=== PATIENT | female | born 1995 | race Hispanic/Latino ===

== ENCOUNTER 2021-11-07 17:58 | Emergency (ER) | payer SELFPAY ==
[2021-11-07] MEDS ORDERED: Ibuprofen 200 MG TAB ONE ×2 (18:24→18:28)
[2021-11-08 18:17] LABS: SARS-CoV-2 PCR by NAA DETECTED (NotDetected)
== END 2021-11-07 19:58 | disposition home or self-care (01) ==
LOC: CSHERS 17:58
DX: U07.1 COVID-19 (principal); I10 Essential (primary) hypertension; E11.9 Type 2 diabetes mellitus without complications; J45.909 Unspecified asthma, uncomplicated
CPT/HCPCS: 87804; 99283; U0003; U0005

== ENCOUNTER 2022-10-20 20:58 | Emergency (ER) | payer SELFPAY ==
[2022-10-20 21:39] LABS: Bilirubin Neg (Negative); Blood, Urine Negative (Negative); Clarity Clear (Clear); Glucose, Urine (Dipstick) >=1000 mg/dL (Negative); Ketone, Urine 50 mg/dL (Negative); Leukocyte 100 (Negative); Nitrite Negative (Negative); Protein, Urine (Dipstick) Negative (Neg-Trace); Specific Gravity, Urine 1.015 (1.005-1.030)
[2022-10-20 21:40] LABS: Pregnancy Test - Urine (BHCG) POSITIVE (Negative); Pregu Control Background? CLEAR/WHITE (CLR/WHITE); Pregu Control Bar Appear? YES (CONTROL BAR); Specific Gravity 1.015 (1.002-1.036)
[2022-10-20 21:53] LABS: Bacteria/HPF 1+ HPF (None Seen); RBC/HPF 0-3 HPF (0-3); Squamous Epithelial 0-3 HPF (0-3)
[2022-10-20 22:19] LABS: #Basophils 0.1 10x3/uL (0.0-0.2); #Eosinphils 0.2 10x3/uL (0.0-0.5); #Monocytes 0.6 10x3/uL (0.0-1.1); #Neutrophils 5.7 10x3/uL (1.5-8.4); %Basophils 0.6 % (0.0-2.0); %Eosinophils 1.7 % (0.0-6.0); %Lymphocytes 35.5 % (18.0-47.0); %Monocytes 5.8 % (0.0-10.0); %Neutrophils 55.9 % (40.0-75.0); Hemoglobin 14.2 g/dL (12.0-15.5); Mean Corpuscular HGB CONC 34.6 g/dL (32.0-36.0); Mean Corpuscular Hemoglobin 29.1 pg (27.0-33.0); Mean Platelet Volume 12.7 fl (7.4-10.4); Platelet Count 169 10x3/uL (150-450); RBC Distribution Width 13.2 % (11.5-14.5); Red Blood Cell (RBC) Count 4.88 10x6/uL (3.90-5.03); White Blood Cell (WBC) Count 10.2 10x3/uL (3.5-10.5)
[2022-10-20 22:40] LABS: ALT (SGPT) 46 U/L (8-55); AST (SGOT) 31 U/L (5-34); Alkaline Phosphatase 95 U/L (40-110); Anion Gap 13 mmol/L (10-20); BUN (Urea Nitrogen) 10 mg/dL (7.0-18.7); Bilirubin, Total 0.3 mg/dL (0.2-1.2); Calc. Creatinine Clearance 0 mL/min (70-130); Calcium 9.1 mg/dL (7.8-10.44); Carbon Dioxide 18 mmol/L (22-29); Chloride 108 mmol/L (98-107); Estimated GFR 111; Globulin 3.3 g/dL (2.4-3.5); Glucose 283 mg/dL (70-105); Potassium 3.6 mmol/L (3.5-5.1); Protein, Total 7.3 g/dL (6.0-8.3); Sodium 135 mmol/L (136-145)
== END 2022-10-20 23:40 | disposition home or self-care (01) ==
LOC: CSHERS 20:58
DX: O99.891 Other specified diseases and conditions complicating pregnancy (principal); R10.9 Unspecified abdominal pain; R53.83 Other fatigue; E11.9 Type 2 diabetes mellitus without complications; Z3A.01 Less than 8 weeks gestation of pregnancy
CPT/HCPCS: 76856; 80053; 81003; 81015; 81025; 84702; 85025; 86900; 86901

== ENCOUNTER 2022-11-02 08:21 | Emergency (ER) | payer SELFPAY ==
[2022-11-02 08:50] LABS: BHCG - Serum POSITIVE (NEGATIVE); Pregs Control Background? CLEAR/WHITE (CLR/WHITE); Pregs Control Bar Appear? YES (CONTROL BAR)
[2022-11-02 08:51] LABS: Bilirubin Neg (Negative); Blood, Urine 150 (Negative); Clarity Clear (Clear); Glucose, Urine (Dipstick) >=1000 mg/dL (Negative); Ketone, Urine Negative (Negative); Leukocyte 100 (Negative); Nitrite Negative (Negative); Protein, Urine (Dipstick) Negative (Neg-Trace); pH, Urine 6.5 (5.0-9.0)
[2022-11-02 08:51] LABS: #Basophils 0.1 10x3/uL (0.0-0.2); #Eosinphils 0.2 10x3/uL (0.0-0.5); #Monocytes 0.9 10x3/uL (0.0-1.1); #Neutrophils 8.1 10x3/uL (1.5-8.4); %Basophils 0.5 % (0.0-2.0); %Eosinophils 1.1 % (0.0-6.0); %Lymphocytes 33.6 % (18.0-47.0); %Monocytes 6.1 % (0.0-10.0); %Neutrophils 58.4 % (40.0-75.0); Hemoglobin 13.9 g/dL (12.0-15.5); Mean Corpuscular HGB CONC 34.8 g/dL (32.0-36.0); Mean Corpuscular Hemoglobin 29.4 pg (27.0-33.0); Mean Corpuscular Volume 84.5 fl (81.6-98.3); Mean Platelet Volume 12.6 fl (7.4-10.4); Platelet Count 186 10x3/uL (150-450); Red Blood Cell (RBC) Count 4.72 10x6/uL (3.90-5.03)
[2022-11-02 09:05] LABS: ALT (SGPT) 31 U/L (8-55); AST (SGOT) 19 U/L (5-34); Albumin 3.8 g/dL (3.5-5.0); Alkaline Phosphatase 109 U/L (40-110); Anion Gap 14 mmol/L (10-20); BUN (Urea Nitrogen) 10 mg/dL (7.0-18.7); Bilirubin, Total 0.3 mg/dL (0.2-1.2); Calc. Creatinine Clearance 0 mL/min (70-130); Calcium 9.2 mg/dL (7.8-10.44); Carbon Dioxide 20 mmol/L (22-29); Chloride 104 mmol/L (98-107); Estimated GFR 97; Globulin 3.1 g/dL (2.4-3.5); Potassium 3.7 mmol/L (3.5-5.1); Protein, Total 6.9 g/dL (6.0-8.3); Sodium 134 mmol/L (136-145)
[2022-11-02 09:14] LABS: Bacteria/HPF 1+ HPF (None Seen)
[2022-11-02 09:33] LABS: Glucose 432 mg/dL (70-105)
== END 2022-11-02 10:40 | disposition home or self-care (01) ==
LOC: CSHERS 08:21
DX: O20.0 Threatened abortion (principal); O24.111 Pre-existing type 2 diabetes mellitus, in pregnancy, first trimester; E11.65 Type 2 diabetes mellitus with hyperglycemia; O23.41 Unspecified infection of urinary tract in pregnancy, first trimester; N39.0 Urinary tract infection, site not specified; Z3A.01 Less than 8 weeks gestation of pregnancy
CPT/HCPCS: 76856; 80053; 81003; 81015; 84702; 84703; 85025

== ENCOUNTER 2023-05-20 10:26 | Day surgery (SDC) | payer OTHER ==
[2023-05-20 11:00] VITALS: BMI 39.4
[2023-05-20] MEDS ORDERED: hydrALAZINE 20 MG/ML VIAL SLOW IVP PRN (12:06)
[2023-05-20] MEDS ORDERED: HumaLOG 300 UNITS/3 ML VIAL SC SCH ×3 (13:30→21:00)
[2023-05-20] MEDS ORDERED: Insulin NPH Human Isophane 100 UNITS/ML (10 ML VIAL) SC SCH ×2 (13:30→21:00)
== END 2023-05-20 13:50 | disposition home or self-care (01) ==
LOC: CSHLD/OP 10:26
PROVIDERS: ATTEND Obstetrics & Gynecology
DX: Z36.89 Encounter for other specified antenatal screening (principal); O24.419 Gestational diabetes mellitus in pregnancy, unspecified control; O99.353 Diseases of the nervous system complicating pregnancy, third trimester; G43.909 Migraine, unspecified, not intractable, without status migrainosus; O99.343 Other mental disorders complicating pregnancy, third trimester; F41.9 Anxiety disorder, unspecified; F32.A Depression, unspecified; Z79.4 Long term (current) use of insulin; Z91.018 Allergy to other foods; Z91.048 Other nonmedicinal substance allergy status; Z79.899 Other long term (current) drug therapy; Z3A.34 34 weeks gestation of pregnancy
CPT/HCPCS: 36416; J1815

== ENCOUNTER 2023-05-31 22:45 | Observation (INO) | payer OTHER ==
[2023-05-31 23:08] VITALS: BMI 39.6
[2023-05-31] MEDS ORDERED: hydrALAZINE 20 MG/ML VIAL SLOW IVP PRN (23:18)
[2023-06-01 00:47] LABS: #Basophils 0.1 10x3/uL (0.0-0.2); #Eosinphils 0.1 10x3/uL (0.0-0.5); #Monocytes 0.7 10x3/uL (0.0-1.1); #Neutrophils 7.4 10x3/uL (1.5-8.4); %Basophils 0.5 % (0.0-2.0); %Lymphocytes 29.1 % (18.0-47.0); %Monocytes 5.7 % (0.0-10.0); %Neutrophils 63.3 % (40.0-75.0); Hemoglobin 12.6 g/dL (12.0-15.5); Mean Corpuscular HGB CONC 33.2 g/dL (32.0-36.0); Mean Corpuscular Hemoglobin 28.3 pg (27.0-33.0); Mean Corpuscular Volume 85.4 fl (81.6-98.3); Platelet Count 172 10x3/uL (150-450); RBC Distribution Width 13.9 % (11.5-14.5); Red Blood Cell (RBC) Count 4.45 10x6/uL (3.90-5.03); White Blood Cell (WBC) Count 11.7 10x3/uL (3.5-10.5)
[2023-06-01 00:49] LABS: Bilirubin 1+ (Negative); Blood, Urine Negative (Negative); Clarity Slightly Cloudy (Clear); Glucose, Urine (Dipstick) 50 mg/dL (Negative); Ketone, Urine 5 mg/dL (Negative); Leukocyte 25 (Negative); Nitrite Negative (Negative); Protein, Urine (Dipstick) 100 mg/dl (Neg-Trace); Specific Gravity, Urine 1.015 (1.005-1.030); pH, Urine 6.5 (5.0-9.0)
[2023-06-01 00:53] LABS: ALT (SGPT) 14 U/L (8-55); AST (SGOT) 16 U/L (5-34); Albumin 3.3 g/dL (3.5-5.0); Alkaline Phosphatase 120 U/L (40-110); Anion Gap 15 mmol/L (10-20); BUN (Urea Nitrogen) 9 mg/dL (7.0-18.7); Bilirubin, Total 0.4 mg/dL (0.2-1.2); Calc. Creatinine Clearance 193 mL/min (70-130); Calcium 8.5 mg/dL (7.8-10.44); Carbon Dioxide 20 mmol/L (22-29); Chloride 107 mmol/L (98-107); Estimated GFR 120; Globulin 2.8 g/dL (2.4-3.5); Glucose 107 mg/dL (70-105); Lipase 44 U/L (8-78); Protein, Total 6.1 g/dL (6.0-8.3); Sodium 138 mmol/L (136-145)
[2023-06-01 00:54] LABS: SARS-CoV-2 NAA Rapid Test Not Detected (NotDetected)
[2023-06-01 01:07] LABS: CAUTI Indications for Culture Pregnancy; RBC/HPF None Seen HPF (0-3); Squamous Epithelial 0-3 HPF (0-3)
[2023-06-01 01:08] LABS: Bacteria/HPF 1+ HPF (None Seen)
[2023-06-01 01:09] LABS: Urine Culture Reflex Yes Yes
[2023-06-01] MEDS ORDERED: cefTRIAXone\\ROCEPHIN 1 GM in Sodium Chloride 0.9% 100 ML IVPB SCH (02:00)
[2023-06-01] MEDS ORDERED: Ondansetron PF 4 MG/2 ML Vial IVP PRN (02:18)
[2023-06-01] MEDS ORDERED: Promethazine HCl 25 MG/ML VIAL IM PRN (02:18)
[2023-06-01] MEDS ORDERED: Sodium Chloride 0.9% 1,000 ML IV SCH (02:30)
[2023-06-01] MEDS ORDERED: metroNIDAZOLE 500 MG TAB PO SCH (03:00)
== END 2023-06-01 14:10 | disposition home health service (06) ==
LOC: CSHLD/OP 22:45 → CSHLD 06-01 01:46
PROVIDERS: ADMIT Obstetrics & Gynecology; ATTEND Obstetrics & Gynecology
DX: O99.891 Other specified diseases and conditions complicating pregnancy (principal); R10.32 Left lower quadrant pain; O99.613 Diseases of the digestive system complicating pregnancy, third trimester; K21.9 Gastro-esophageal reflux disease without esophagitis; O24.313 Unspecified pre-existing diabetes mellitus in pregnancy, third trimester; O23.43 Unspecified infection of urinary tract in pregnancy, third trimester; N39.0 Urinary tract infection, site not specified; O23.593 Infection of other part of genital tract in pregnancy, third trimester; B96.89 Other specified bacterial agents as the cause of diseases classified elsewhere; Z79.84 Long term (current) use of oral hypoglycemic drugs; Z79.4 Long term (current) use of insulin; Z88.4 Allergy status to anesthetic agent; Z79.899 Other long term (current) drug therapy; Z91.018 Allergy to other foods; Z3A.35 35 weeks gestation of pregnancy; Z20.822 Contact with and (suspected) exposure to COVID-19
CPT/HCPCS: 36415; 76819; 80053; 81001; 82010; 83690; 85025; 87086; 87480; 87510; 87660; 96374; G0378; J0696; J3490; J7050

== ENCOUNTER 2023-06-15 07:58 | Day surgery (SDC) | payer OTHER ==
[2023-06-15] MEDS ORDERED: Ondansetron PF 4 MG/2 ML Vial ONE (09:16)
[2023-06-15] MEDS ORDERED: Morphine 2 MG/ML VIAL SLOW IVP SCH (09:45)
[2023-06-15] MEDS ORDERED: Morphine 4 MG/ML VIAL SLOW IVP SCH (10:00)
[2023-06-15 11:08] VITALS: BMI 40.2
== END 2023-06-15 19:33 | disposition home or self-care (01) ==
LOC: CSHLD/OP 07:58
PROVIDERS: ATTEND Obstetrics & Gynecology
DX: O99.891 Other specified diseases and conditions complicating pregnancy (principal); M54.9 Dorsalgia, unspecified; O21.2 Late vomiting of pregnancy; O32.1XX0 Maternal care for breech presentation, not applicable or unspecified; O24.913 Unspecified diabetes mellitus in pregnancy, third trimester; Z3A.38 38 weeks gestation of pregnancy; Z79.4 Long term (current) use of insulin; Z91.018 Allergy to other foods; Z88.8 Allergy status to other drugs, medicaments and biological substances
CPT/HCPCS: J2405

== ENCOUNTER 2023-06-18 09:58 | Inpatient (IN) | payer OTHER ==
[2023-06-17 11:43] LABS: Hematocrit 39.2 % (34.9-44.5); Hemoglobin 13.2 g/dL (12.0-15.5); Platelet Count 179 10x3/uL (150-450)
[2023-06-17 12:19] LABS: HBSAg Index 0.19 S/CO (0-0.99); Hep B Surf Ag Non-Reactive S/CO (NonReactive)
[2023-06-17 12:20] LABS: Syphilis Antibody Nonreactive (Nonreactive); Syphilis Antibody Index 0.05 S/CO (<1.00 Non-Reactive)
[2023-06-18] MEDS ORDERED: CEFAZOLIN 2 GM VIAL ONE (10:16)
[2023-06-18] MEDS ORDERED: Sodium Chloride 0.9% 100 ML ONE (10:16)
[2023-06-18] MEDS ORDERED: Famotidine/PF 20 mg/2ml Vial ONE (10:16)
[2023-06-18] MEDS ORDERED: Ondansetron PF 4 MG/2 ML Vial IVP PRN ×3 (10:57→15:59)
[2023-06-18] MEDS ORDERED: Carboprost 250 MCG/ML AMP IM PRN (10:57)
[2023-06-18] MEDS ORDERED: Famotidine/PF 20 mg/2ml Vial SLOW IVP PRN (10:57)
[2023-06-18] MEDS ORDERED: Diphenoxylate HCl/Atropine Tablet PO PRN ×2 (10:57)
[2023-06-18] MEDS ORDERED: Promethazine HCl 25 MG/ML VIAL IM PRN ×3 (10:57→15:59)
[2023-06-18] MEDS ORDERED: Misoprostol 200 MCG TAB PR PRN ×2 (10:57→15:59)
[2023-06-18] MEDS ORDERED: Methylergonovine 0.2 MG/ML VIAL IM PRN ×2 (10:57→15:59)
[2023-06-18] MEDS ORDERED: Tranexamic Acid 1,000 MG/10 ML VIAL IVP PRN (10:57)
[2023-06-18] MEDS ORDERED: hydrALAZINE 20 MG/ML VIAL SLOW IVP PRN ×2 (10:57→15:59)
[2023-06-18] MEDS ORDERED: Bicitra 30 ML UDCUP PO PRN (10:57)
[2023-06-18] MEDS ORDERED: Lactated Ringer's 1,000 ML IV SCH (11:00)
[2023-06-18] MEDS ORDERED: CEFAZOLIN 2 GM in Sodium Chloride 0.9% 100 ML IVPB SCH (11:00)
[2023-06-18] MEDS ORDERED: NS w/ Oxytocin 30 units 500 ML IV SCH ×2 (11:00→15:59)
[2023-06-18 12:01] VITALS: BMI 39.4
[2023-06-18] MEDS ORDERED: fentaNYL 50 mcg/mL 1 mL Vial ONE (12:12)
[2023-06-18] MEDS ORDERED: Morphine PF 10 MG/10 ML VIAL ONE (12:12)
[2023-06-18] MEDS ORDERED: Oxytocin 10 UNITS/ML VIAL ONE ×2 (12:41→13:00)
[2023-06-18] MEDS ORDERED: Ondansetron PF 4 MG/2 ML Vial ONE (12:41)
[2023-06-18] MEDS ORDERED: PHENYLEPHRINE-NS 100 MCG/ML 10 ML SYRINGE ONE (12:41)
[2023-06-18] MEDS ORDERED: Dexamethasone 4 mg/ml Vial ONE (12:41)
[2023-06-18] MEDS ORDERED: Promethazine HCl 25 MG/ML VIAL ONE (12:44)
[2023-06-18] MEDS ORDERED: Phenylephrine 40 MG/NS 250 ML 250 ML ONE (13:13)
[2023-06-18] MEDS ORDERED: Ondansetron HCl/PF 4 MG/2 ML Vial IVP PRN (13:20)
[2023-06-18] MEDS ORDERED: Naloxone HCl 0.4 mg/ml Vial IV PRN (13:20)
[2023-06-18] MEDS ORDERED: L&D-HYDROmorphone 0.5 MG/0.5 ML SYRINGE SLOW IVP PRN (13:20)
[2023-06-18] MEDS ORDERED: Promethazine HCl 25 MG SUPP PR PRN (13:20)
[2023-06-18] MEDS ORDERED: Ketorolac Tromethamine 30 MG/ML VIAL IVP PRN (13:20)
[2023-06-18] MEDS ORDERED: Meperidine HCl/PF 25 MG/ML VIAL SLOW IVP PRN (13:20)
[2023-06-18] MEDS ORDERED: Moisturizing Cream (Eucerin) 113 GM JAR TOP PRN (13:20)
[2023-06-18] MEDS ORDERED: Fentanyl 50 MCG/1 ML VIAL SLOW IVP PRN (13:20)
[2023-06-18] MEDS ORDERED: diphenhydrAMINE 50 MG/ML VIAL IVP PRN (13:20)
[2023-06-18] MEDS ORDERED: Naloxone HCl 0.4 mg/ml Vial IVP PRN ×2 (13:20)
[2023-06-18] MEDS ORDERED: diphenhydrAMINE 50 MG/ML VIAL ONE (13:26)
[2023-06-18] MEDS ORDERED: Naloxone HCl 0.4 mg/ml Vial ONE (13:27)
[2023-06-18] MEDS ORDERED: Ketorolac Tromethamine 30 MG/ML VIAL IVP SCH (13:30)
[2023-06-18] MEDS ORDERED: Communication Order-Pharmacy FS SCH (13:30)
[2023-06-18] MEDS ORDERED: Boostrix 0.5 ML (Tdap) VIAL (>/=7 yrs of age) IM ONE (15:59)
[2023-06-18] MEDS ORDERED: Lanolin Ointment 7 GM TUBE TOP PRN (15:59)
[2023-06-18] MEDS ORDERED: Bisacodyl 10 MG SUPP PR PRN (15:59)
[2023-06-18] MEDS ORDERED: Insulin Regular 300 UNITS/3 ML VIAL SC PRN (15:59)
[2023-06-18] MEDS ORDERED: Dextrose 50% Abboject 50 ML SYRINGE SLOW IVP PRN (15:59)
[2023-06-18] MEDS ORDERED: Acetaminophen 325 MG TAB PO PRN (15:59)
[2023-06-18] MEDS ORDERED: Dextrose 5% in Water 1,000 ML IV PRN (15:59)
[2023-06-18] MEDS ORDERED: Glucagon 1 MG/ML KIT IM PRN (15:59)
[2023-06-18] MEDS ORDERED: diphenhydrAMINE 25 MG CAP PO PRN (15:59)
[2023-06-18] MEDS ORDERED: Varicella virus, LIVE 0.5 ML VIAL SC ONE (15:59)
[2023-06-18] MEDS ORDERED: Measles/Mumps/Rubella 10 MCG/0.5 ML VIAL SC ONE (15:59)
[2023-06-18] MEDS ORDERED: Simethicone Chewable 80 MG TAB PO PRN (15:59)
[2023-06-18] MEDS: Ferrous Sulfate 325 MG TAB PO SCH (21:00)
[2023-06-18] MEDS: Docusate 100 MG CAP PO SCH (21:00)
[2023-06-19] MEDS ORDERED: Zolpidem Tartrate 5 MG TAB PO PRN (01:30)
[2023-06-19] MEDS: HYDROcodone/Acetaminophen 5/325 mg Tablet PO PRN ×3 (06:22→23:23)
[2023-06-19] MEDS: Docusate 100 MG CAP PO SCH ×2 (08:17→21:36)
[2023-06-19] MEDS: Prenatal Vitamin 1 TAB PO SCH (08:17)
[2023-06-19 08:27] LABS: Hematocrit 32.7 % (34.9-44.5); Hemoglobin 10.9 g/dL (12.0-15.5); Mean Corpuscular HGB CONC 33.3 g/dL (32.0-36.0); Mean Corpuscular Hemoglobin 28.8 pg (27.0-33.0); Mean Corpuscular Volume 86.3 fl (81.6-98.3); Mean Platelet Volume 13.3 fl (7.4-10.4); Platelet Count 155 10x3/uL (150-450); RBC Distribution Width 14.1 % (11.5-14.5); Red Blood Cell (RBC) Count 3.79 10x6/uL (3.90-5.03)
[2023-06-19] MEDS: Ferrous Sulfate 325 MG TAB PO SCH ×2 (09:00→21:39)
[2023-06-19] MEDS: Ibuprofen 800 MG TAB PO SCH ×2 (14:02→21:36)
[2023-06-20] MEDS: Ibuprofen 800 MG TAB PO SCH (05:51)
[2023-06-20 06:15] VITALS: BP 116/65; TEMP 98
[2023-06-20] MEDS: Docusate 100 MG CAP PO SCH (10:21)
[2023-06-20] MEDS: Ferrous Sulfate 325 MG TAB PO SCH (10:22)
[2023-06-20] MEDS: Prenatal Vitamin 1 TAB PO SCH (10:22)
[2023-06-20] MEDS: HYDROcodone/Acetaminophen 5/325 mg Tablet PO PRN (10:44)
== END 2023-06-20 12:30 | disposition home or self-care (01) | DRG 788 ==
LOC: CSHLD 09:58 → CSHPP 15:25
PROVIDERS: ADMIT Obstetrics & Gynecology; ATTEND Obstetrics & Gynecology
PROC: 10D00Z1 Extraction of Products of Conception, Low, Open Approach (ICD-10-PCS; principal; 2023-06-18)
DX: O32.2XX0 Maternal care for transverse and oblique lie, not applicable or unspecified (principal); O70.1 Second degree perineal laceration during delivery; O40.3XX0 Polyhydramnios, third trimester, not applicable or unspecified; O24.92 Unspecified diabetes mellitus in childbirth; Z3A.38 38 weeks gestation of pregnancy; Z37.0 Single live birth; Z88.8 Allergy status to other drugs, medicaments and biological substances; Z91.018 Allergy to other foods
CPT/HCPCS: 36415; 36416; 51702; 85014; 85018; 85027; 85049; 86780; 86850; 86900; 86901; 87340; J1100; J1200; J1815; J1885; J2274; J2310; J2405; J2550; J2590; J3010; J7120; S0028

== ENCOUNTER 2023-12-08 13:26 | Emergency (ER) | payer OTHER, SELFPAY ==
[2023-12-08] MEDS ORDERED: Ondansetron PF 4 MG/2 ML Vial ONE (15:10)
[2023-12-08] MEDS ORDERED: Ketorolac Tromethamine 30 MG (1 mL) VIAL ONE (15:10)
[2023-12-08 15:25] LABS: #Basophils 0.1 10x3/uL (0.0-0.2); #Eosinphils 0.2 10x3/uL (0.0-0.5); #Monocytes 0.5 10x3/uL (0.0-1.1); #Neutrophils 4.8 10x3/uL (1.5-8.4); %Basophils 0.6 % (0.0-2.0); %Eosinophils 2.5 % (0.0-6.0); %Monocytes 5.1 % (0.0-10.0); %Neutrophils 50.5 % (40.0-75.0); Hematocrit 35.6 % (34.9-44.5); Hemoglobin 11.9 g/dL (12.0-15.5); Mean Corpuscular HGB CONC 33.4 g/dL (32.0-36.0); Mean Corpuscular Volume 83.8 fl (81.6-98.3); Mean Platelet Volume 13.1 fl (7.4-10.4); Platelet Count 162 10x3/uL (150-450); RBC Distribution Width 13.4 % (11.5-14.5); Red Blood Cell (RBC) Count 4.25 10x6/uL (3.90-5.03); White Blood Cell (WBC) Count 9.5 10x3/uL (3.5-10.5)
[2023-12-08 15:27] LABS: ALT (SGPT) 12 U/L (8-55); AST (SGOT) 13 U/L (5-34); Albumin 3.6 g/dL (3.5-5.0); Alkaline Phosphatase 63 U/L (40-110); Anion Gap 9 mmol/L (10-20); BUN (Urea Nitrogen) 10 mg/dL (7.0-18.7); Bilirubin, Total 0.3 mg/dL (0.2-1.2); Calc. Creatinine Clearance 0 mL/min (70-130); Calcium 8.5 mg/dL (7.8-10.44); Carbon Dioxide 26 mmol/L (22-29); Chloride 110 mmol/L (98-107); Estimated GFR 109; Globulin 2.5 g/dL (2.4-3.5); Glucose 183 mg/dL (70-105); Potassium 3.8 mmol/L (3.5-5.1); Protein, Total 6.1 g/dL (6.0-8.3); Sodium 141 mmol/L (136-145)
[2023-12-08 16:11] LABS: Bilirubin Neg (Negative); Blood, Urine 250 (Negative); Clarity Slightly Cloudy (Clear); Glucose, Urine (Dipstick) Normal (Negative); Ketone, Urine Negative (Negative); Leukocyte 25 (Negative); Nitrite Positive (Negative); Protein, Urine (Dipstick) 15 mg/dl (Neg-Trace); Urobilinogen Normal mg/dL (Less than 2)
[2023-12-08 16:15] LABS: Pregnancy Test - Urine (BHCG) Negative (Negative); Pregu Control Background? CLEAR/WHITE (CLR/WHITE); Pregu Control Bar Appear? YES (CONTROL BAR)
[2023-12-08 16:24] LABS: Bacteria/HPF 4+ HPF (None Seen); CAUTI Indications for Culture Pelvic or flank pain; RBC/HPF 21-50 HPF (0-3)
[2023-12-08 16:26] LABS: Urine Culture Reflex No No
== END 2023-12-08 18:08 | disposition home or self-care (01) ==
LOC: CSHERS 13:26
DX: N83.201 Unspecified ovarian cyst, right side (principal); N39.0 Urinary tract infection, site not specified; E11.9 Type 2 diabetes mellitus without complications; J45.909 Unspecified asthma, uncomplicated; G43.909 Migraine, unspecified, not intractable, without status migrainosus; M54.30 Sciatica, unspecified side
CPT/HCPCS: 36415; 74176; 76856; 80053; 81001; 81025; 83690; 85025; 96374; 96375; J1885; J2405

== ENCOUNTER 2024-04-12 13:22 | Emergency (ER) | payer OTHER ==
[2024-04-12] MEDS ORDERED: HYDROcodone/Acetaminophen 5/325 mg Tablet ONE (13:54)
[2024-04-12] MEDS ORDERED: Dexamethasone 10 MG/ML VIAL ONE (13:54)
== END 2024-04-12 14:19 | disposition home or self-care (01) ==
LOC: CSHERS 13:22
DX: M54.42 Lumbago with sciatica, left side (principal); E11.9 Type 2 diabetes mellitus without complications
CPT/HCPCS: 96372; 99283; J1100

== ENCOUNTER 2024-11-21 01:19 | Emergency (ER) | payer OTHER ==
[2024-11-21] MEDS ORDERED: Ondansetron PF 4 MG/2 ML Vial ONE (02:07)
[2024-11-21] MEDS ORDERED: Acetaminophen 500 MG TAB ONE (02:08)
== END 2024-11-21 03:51 | disposition home or self-care (01) ==
LOC: CSHERS 01:19
DX: O9A.211 Injury, poisoning and certain other consequences of external causes complicating pregnancy, first trimester (principal); S29.012A Strain of muscle and tendon of back wall of thorax, initial encounter; S80.811A Abrasion, right lower leg, initial encounter; O24.111 Pre-existing type 2 diabetes mellitus, in pregnancy, first trimester; O99.331 Smoking (tobacco) complicating pregnancy, first trimester; F17.290 Nicotine dependence, other tobacco product, uncomplicated; Y04.2XXA Assault by strike against or bumped into by another person, initial encounter; Y93.89 Activity, other specified; Z3A.09 9 weeks gestation of pregnancy
CPT/HCPCS: 96361; 96374; J2405

== ENCOUNTER 2025-05-23 13:51 | Day surgery (SDC) | payer MEDICAID, OTHER ==
[2025-05-23] MEDS ORDERED: hydrALAZINE 20 MG/ML VIAL SLOW IVP PRN (14:42)
[2025-05-23 15:05] VITALS: BMI 45.5
[2025-05-23 15:22] LABS: Hematocrit 31.0 % (34.9-44.5); Hemoglobin 10.0 g/dL (12.0-15.5); Mean Corpuscular Hemoglobin 26.0 pg (27.0-33.0); Mean Corpuscular Volume 80.7 fL (81.6-98.3); Platelet Count 150 10x3/uL (150-450); Red Blood Cell (RBC) Count 3.84 10x6/uL (3.90-5.03); White Blood Cell (WBC) Count 8.85 10x3/uL (3.5-10.5)
[2025-05-23 15:23] LABS: #Basophils 0.04 10x3/uL (0.0-0.2); #Eosinophils 0.13 10x3/uL (0.0-0.5); #Monocytes 0.49 10x3/uL (0.0-1.1); #Neutrophils 5.58 10x3/uL (1.5-8.4); %Basophils 0.5 % (0.0-2.0); %Eosinophils 1.5 % (0.0-6.0); %Lymphocytes 29.2 % (18.0-47.0); %Monocytes 5.5 % (0.0-10.0); %Neutrophils 63.0 % (40.0-75.0)
[2025-05-23 15:26] LABS: ALT (SGPT) 7 U/L (Less than 34); AST (SGOT) 12 U/L (11-34); Albumin 2.7 g/dL (3.1-4.5); Alkaline Phosphatase 105 U/L (40-110); Anion Gap 12 mmol/L (10-20); BUN (Urea Nitrogen) 11 mg/dL (7.0-18.7); Bilirubin, Total 0.3 mg/dL (0.3-1.2); Calc. Creatinine Clearance 242 mL/min (70-130); Calcium 8.4 mg/dL (7.8-10.44); Carbon Dioxide 19 mmol/L (22-29); Chloride 110 mmol/L (98-107); Globulin 4.1 g/dL (2.4-3.5); Glucose 139 mg/dL (70-105); Potassium 3.9 mmol/L (3.5-5.1); Sodium 137 mmol/L (136-145)
[2025-05-23 17:01] LABS: Glucose, Urine (Dipstick) Normal (Negative); Leukocyte 100 (Negative); Protein, Urine (Dipstick) 30 mg/dl (Neg-Trace); Specific Gravity, Urine 1.015 (1.005-1.030)
[2025-05-23 17:15] LABS: RBC/HPF 0-3 HPF (0-3); WBC/HPF 21-50 HPF (0-3)
[2025-05-23 17:16] LABS: Bacteria/HPF 3+ HPF (None Seen); Mucous/LPF 1+ LPF (<2+)
[2025-05-23] MEDS ORDERED: CEFAZOLIN 2 GM VIAL ONE (18:08)
[2025-05-23] MEDS: Acetaminophen 500 MG TAB PO SCH (18:21)
[2025-05-23] MEDS: Cyclobenzaprine 10 MG TAB PO SCH (18:22)
== END 2025-05-23 18:51 | disposition home or self-care (01) ==
LOC: CSHLD/OP 13:51
PROVIDERS: ATTEND Family Medicine
DX: O47.03 False labor before 37 completed weeks of gestation, third trimester (principal); R19.7 Diarrhea, unspecified; O23.43 Unspecified infection of urinary tract in pregnancy, third trimester; N39.0 Urinary tract infection, site not specified; Z3A.35 35 weeks gestation of pregnancy; Z91.018 Allergy to other foods; Z88.8 Allergy status to other drugs, medicaments and biological substances
CPT/HCPCS: 76819; 80053; 81001; 85025; 96360; 96361; 96365; 99283

== ENCOUNTER 2025-07-07 22:01 | Emergency (ER) | payer OTHER | END 2025-07-07 23:16 | disposition home or self-care (01) | LOC: CSHERS 22:01 | DX: B35.4 Tinea corporis (principal) | CPT/HCPCS: 99283 ==

== ENCOUNTER 2025-08-08 16:21 | Emergency (ER) | payer OTHER, SELFPAY | END 2025-08-08 17:21 | disposition home or self-care (01) | LOC: CSHERS 16:21 | DX: G89.18 Other acute postprocedural pain (principal); L03.311 Cellulitis of abdominal wall | CPT/HCPCS: 99283 ==